=== PATIENT | female | born 1960 | race Caucasian/White ===

== ENCOUNTER → 2016-10-13 | Outpatient (CLI) | payer BC ==
[~2016-10-13] MED LIST: EFFSR150 PO; LPT/40 PO
--- NOTE | 2016-10-13 18:28 | DIAGNOSTIC IMAGING REPORT ---
C-SPINE ROUTINE 4 OR 5 VIEWS CLINICAL HISTORY: Neck pain following fall 2 days ago. COMPARISON STUDY: No previous studies for comparison. FINDINGS: Visualization of the cervical spine is adequate. Alignment is anatomic with the exception of slight reversal. No fracture is present. Moderate disc space narrowing and osteophytosis is noted at C5-C6 and C6-C7. There is moderate multilevel facet arthrosis. IMPRESSION: 1. No acute cervical spine fracture or subluxation. 2. Moderate degenerative disc disease at C5-C6 and C6-C7 with moderate multilevel facet arthrosis. Electronically signed by: Izaiah Adair M.D. 10/13/2016 6:27 PM Dictated Date/Time: 10/13/2016 6:26 PM
== END | disposition home or self-care (01) ==
LOC: C.RAD 17:25
PROVIDERS: ATTEND Family Medicine
DX: S19.9XXA Unspecified injury of neck, initial encounter (principal); X58.XXXA Exposure to other specified factors, initial encounter; M50.323 Other cervical disc degeneration at C6-C7 level; M50.322 Other cervical disc degeneration at C5-C6 level

== ENCOUNTER → 2017-09-14 | Day surgery (SDC) | payer BC ==
[2017-09-04 07:31] VITALS: Ht 176.5 cm; Wt 106.8 kg
[~2017-09-14] VITALS: Ht 176.5 cm; Wt 106.8 kg
[~2017-09-14] MED LIST changes: +ASCO500T3 PO; +ASPCH81X PO; +CINNAMON PO; +CYAN100020 PO; -EFFSR150 PO; +GLC/500 PO; +KRIL1000 PO; +LIDOCAINE HCL 2% 2 ML VIAL (20MG/ML) ONE; +MULT-506 PO; +PROPOFOL IV EMULSION 10 MG/ML 20 ML VIAL IV ONE; +SENNTAB23 PO; +SODIUM CHLORIDE 0.9% 500ML 500 ML IV ONE; +VENL150C56 PO; +VITA400C3 PO; +VITAMIN B12 PO
--- NOTE | 2017-09-14 14:26 | Endo History and Physical ---
History & Physical Date of Service: Sep 14, 2017. Chief Complaint: Screening Referring Physician: Sidney History of Present Illness 56 yo CF who presents for screening colonoscopy. Past Surgical History Hx Cardiac Surgery: No Hx Internal Defibrillator: No Hx Pacemaker: No Hx Abdominal Surgery: Yes (TUBAL LIGATION, UTERINE ALBATION) Hx of Implantable Prosthesis: No Hx Post-Op Nausea and Vomiting: No Hx Cancer Surgery: No Hx Thoracic Surgery: No Hx Orthopedic: Yes (LEFT SHOULDER SURGERY, LEFT KNEE SURGERY) Hx Urinary Tract Surgery: No Family History IBD Social History Smoking Status: Current Every Day Smoker Hx Substance Use: No Hx Alcohol Use: Yes (OCCASIONALLY) Allergies Coded Allergies: Clarithromycin (Unverified Allergy, Intermediate, "CAN FEEL IT GOING RIGHT DOWN THROUGH ME", 09/04/17) Naproxen (Verified Allergy, Unknown, FLUSHED AND JITTERY, 09/04/17) Current Medications Reported Home Medications Medications Dose Route/Sig Max Daily Dose Days Date Category Vitamin C (Ascorbic Acid) 500 Mg Tab 1 Tab PO QAM 08/22/17 Reported Aspirin Chewable (Aspirin) 81 Mg Chew 81 Mg PO HS 08/22/17 Reported Effexor Extended Rel (Venlafaxine Hcl) 150 Mg Cap 150 Mg PO QAM 08/22/17 Reported Krill Oil 1 Cap Cap 1 Cap PO QAM 08/22/17 Reported Vitamin E 400 Iu (Vitamin E) 400 Unit Cap 400 Inter.unit PO QAM 08/22/17 Reported [Cinnamon] 1 Tab PO BID 08/22/17 Reported Vitamin B12 (Cyanocobalamin) 1,000 Mcg Tab 1 Tab PO QAM 08/22/17 Reported [Vitamin B12] 1 Tab PO QAM 08/22/17 Reported Multivitamin (Multivitamins) Tab 1 Tab PO QAM 08/22/17 Reported Stool Softener (Sennosides-Docusate Sodium) 1 Tab Tab 2 Tab PO BID 08/22/17 Reported Glucophage (Metformin Hcl) 500 Mg Tab 250 Mg PO QAM 08/22/17 Reported Lipitor (Atorvastatin) 40 Mg Tab 40 Mg PO HS 05/17/16 Reported Vital Signs Weight (Kilograms): 106.82 Height (Feet): 5 Height (Inches): 9.5 Date Time Temp Pulse Resp B/P (MAP) Pulse Ox O2 Delivery O2 Flow Rate FiO2 09/14/17 13:53 36.7 76 20 134/79 (97) 95 Room Air Physical Exam General Appearance: WD/WN, no apparent distress Respiratory/Chest: Auscultation: breath sounds normal Cardiovascular: Heart Auscultation: RRR Abdomen: Bowel Sounds: normal Inspection & Palpation: soft, non-distended, no tenderness, guarding & rebound Assessment and Plan Assessment: 56 yo CF who presents for screening colonoscopy. Plan: Proceed with colonoscopy.
--- NOTE | 2017-09-14 15:09 | Anesthesiology Progress Note ---
Anesthesia Post Op Note Date & Time Sep 14, 2017 at 15:09 Vital Signs Pain Intensity: 0 Vital Signs Past 12 Hours Date Time Temp Pulse Resp B/P (MAP) Pulse Ox O2 Delivery O2 Flow Rate FiO2 09/14/17 13:53 36.7 76 20 134/79 (97) 95 Room Air Notes Mental Status: alert / awake / arousable, participated in evaluation Pt Amnestic to Procedure: Yes Nausea / Vomiting: adequately controlled Pain: adequately controlled Airway Patency, RR, SpO2: stable & adequate BP & HR: stable & adequate Hydration State: stable & adequate Anesthetic Complications: no major complications apparent
--- NOTE | 2017-09-14 15:13 | Discharge Instructions ---
Endoscopy Patient Instructions Date / Procedure(s) Performed Sep 14, 2017. Colonoscopy Allergy Information Coded Allergies: Clarithromycin (Unverified Allergy, Intermediate, "CAN FEEL IT GOING RIGHT DOWN THROUGH ME", 09/04/17) Naproxen (Verified Allergy, Unknown, FLUSHED AND JITTERY, 09/04/17) Discharge Date / Findings Sep 14, 2017. Colon polyps Diverticulosis Internal hemorrhoids Medication Instructions Stopped Medication(s): ASA last 09/12/17 OK to resume all medications today as prescribed Reported Home Medications Medications Dose Route/Sig Max Daily Dose Days Date Category Vitamin C (Ascorbic Acid) 500 Mg Tab 1 Tab PO QAM 08/22/17 Reported Aspirin Chewable (Aspirin) 81 Mg Chew 81 Mg PO HS 08/22/17 Reported Effexor Extended Rel (Venlafaxine Hcl) 150 Mg Cap 150 Mg PO QAM 08/22/17 Reported Krill Oil 1 Cap Cap 1 Cap PO QAM 08/22/17 Reported Vitamin E 400 Iu (Vitamin E) 400 Unit Cap 400 Inter.unit PO QAM 08/22/17 Reported [Cinnamon] 1 Tab PO BID 08/22/17 Reported Vitamin B12 (Cyanocobalamin) 1,000 Mcg Tab 1 Tab PO QAM 08/22/17 Reported [Vitamin B12] 1 Tab PO QAM 08/22/17 Reported Multivitamin (Multivitamins) Tab 1 Tab PO QAM 08/22/17 Reported Stool Softener (Sennosides-Docusate Sodium) 1 Tab Tab 2 Tab PO BID 08/22/17 Reported Glucophage (Metformin Hcl) 500 Mg Tab 250 Mg PO QAM 08/22/17 Reported Lipitor (Atorvastatin) 40 Mg Tab 40 Mg PO HS 05/17/16 Reported Provider Instructions Activity Restrictions - No exercising or heavy lifting for 24 hours. - Do not drink alcohol the day of the procedure. - Do not drive a car or operate machinery until the day after the procedure. - Do not make any important decisions or sign important papers in 24 hours after the procedure. Following Day: - Return to full activity which may include returning to work/school. Diet Start your diet with liquids and light foods (jello, soup, juice, toast). Then eat your usual diet if not nauseated. Treatment For Common After Affects For mild abdominal pain, bloating, or excessive gas: - Rest - Eat lightly - Lie on right side Follow-Up Information Follow-up with Elvis as scheduled Anesthesia Information What You Should Know You have had a procedure that required some medicine to reduce anxiety and discomfort. This treatment is called moderate sedation. After receiving the treatment, you may be sleepy, but you will be able to breathe on your own. The effects of the treatment may last for several hours. Follow these instructions along with Activity/Diet recommendations noted above: * Do NOT do anything where dizziness or clumsiness would be dangerous. * Rest quietly at home today, then you can be up and about tomorrow. * Have a responsible person stay with you the rest of today. * You may have had an I.V. today. If so, you may take the dressing off later today. Recommendations Call your doctor if: * Trouble breathing * Continuous vomiting for more than 24 hours * Temperature above 101 degrees * Severe abdominal pain or bloating * Pain not relieved by pain medicine ordered * There is increased drainage or redness from any incision * A large amount of rectal bleeding greater than 2-3 tablespoons. (If you had a polyp/s removed or have hemorrhoids, a small amount of blood - from the rectum is to be expected.) * You have any unanswered questions or concerns. IN THE EVENT OF A SERIOUS EMERGENCY, GO TO THE NEAREST EMERGENCY ROOM Your discharge instructions were prepared by provider Kaleb Aragon. Patient Instructions Signature Page Marlena Laird Patient (or Guardian) Signature/Date: I have read and understand the instructions given to me by my caregivers. Caregiver/RN/Doctor Signature/Date: The above-named patient and/or guardian has received patient instructions on this date. + Original Patient Signature Page (only) stays with chart. Please make copy for patient.
--- NOTE | 2017-09-14 15:17 | GI REPORT ---
Procedure Date: 09/14/2017 2:19 PM Procedure: Colonoscopy Indications: Screening for colorectal malignant neoplasm Medicines: Monitored Anesthesia Care Complications: No immediate complications. Estimated Blood Loss: Estimated blood loss: none. Procedure: Pre-Anesthesia Assessment: - Prior to the procedure, a History and Physical was performed, and patient medications and allergies were reviewed. The patient's tolerance of previous anesthesia was also reviewed. The risks and benefits of the procedure and the sedation options and risks were discussed with the patient. All questions were answered, and informed consent was obtained. Prior Anticoagulants: The patient has taken aspirin, last dose was 2 days prior to procedure. ASA Grade Assessment: II - A patient with mild systemic disease. After reviewing the risks and benefits, the patient was deemed in satisfactory condition to undergo the procedure. After I obtained informed consent, the scope was passed under direct vision. Throughout the procedure, the patient's blood pressure, pulse, and oxygen saturations were monitored continuously. The scope was introduced through the anus and advanced to the terminal ileum. The colonoscopy was performed without difficulty. The patient tolerated the procedure well. The quality of the bowel preparation was good. The terminal ileum, ileocecal valve, appendiceal orifice, and rectum were photographed. Findings: A 2 mm polyp was found in the descending colon. The polyp was sessile. The polyp was removed with a cold biopsy forceps. Resection and retrieval were complete. Three sessile polyps were found in the sigmoid colon. The polyps were 4 to 7 mm in size. These polyps were removed with a hot snare. Resection and retrieval were complete. Multiple small-mouthed diverticula were found in the sigmoid colon. Non-bleeding internal hemorrhoids were found during retroflexion. The hemorrhoids were small. Impression: - One 2 mm polyp in the descending colon, removed with a cold biopsy forceps. Resected and retrieved. - Three 4 to 7 mm polyps in the sigmoid colon, removed with a hot snare. Resected and retrieved. - Diverticulosis in the sigmoid colon. - Non-bleeding internal hemorrhoids. Recommendation: - Resume previous diet. - Continue present medications. - Repeat colonoscopy for surveillance based on pathology results. - Return to primary care physician as previously scheduled. Kaleb Aragon DO 09/14/2017 3:17:25 PM This report has been signed electronically. Note Initiated On: 09/14/2017 2:19 PM I attest to the content of the Intraoperative Record and orders documented therein, exceptions below
[2017-09-14 15:38] VITALS: BP 153/93; PULSE 71; O2SAT 99
== END | disposition home or self-care (01) ==
LOC: C.GI 13:14
PROVIDERS: ATTEND Internal Medicine
DX: Z12.11 Encounter for screening for malignant neoplasm of colon (principal); D12.4 Benign neoplasm of descending colon; D12.5 Benign neoplasm of sigmoid colon; K57.30 Diverticulosis of large intestine without perforation or abscess without bleeding; K64.8 Other hemorrhoids; E66.9 Obesity, unspecified; E11.9 Type 2 diabetes mellitus without complications; J44.9 Chronic obstructive pulmonary disease, unspecified; Z68.34 Body mass index [BMI] 34.0-34.9, adult; Z98.51 Tubal ligation status; Z98.890 Other specified postprocedural states; F17.200 Nicotine dependence, unspecified, uncomplicated; Z88.1 Allergy status to other antibiotic agents; Z79.82 Long term (current) use of aspirin